=== PATIENT | male | born 1960 | race Two or more races ===

== ENCOUNTER 2024-03-05 09:07 | Day surgery (SDC) | payer OTHER ==
[2024-03-05] MEDS ORDERED: DIPHENHYDRAMINE HCL 50 MG/ML VIAL 1ML IV ONE ×2 (13:30)
[2024-03-05] MEDS ORDERED: MIDAZOLAM HCL 2 MG/2 ML VIAL IV ONE (13:30)
[2024-03-05] MEDS ORDERED: fentaNYL CITRATE 50 MCG/ML AMPUL IV PUSH ONE (13:30)
== END 2024-03-05 14:55 | disposition home or self-care (01) ==
LOC: AMB-ENDOS 09:07
PROVIDERS: ATTEND Surgery
DX: D12.0 Benign neoplasm of cecum (principal); K58.9 Irritable bowel syndrome, unspecified